=== PATIENT | female | born 1940 | race Caucasian/White ===

== ENCOUNTER 2019-02-20 07:16 | Day surgery (SDC) | payer MEDICARE, OTHER, SELFPAY ==
--- NOTE | 2019-02-20 | PATH_ITS ---
[facility] Accession Number: [id number] . 01 Material submitted: . PART A: cecum - CECAL POLYP PART B: colon - ASCENDING COLON POLYP PART C: sigmoid colon - SIGMOID POLYP . 02 Diagnosis: A. Cecum, Polyp, Biopsy: Sessile serrated adenoma. . B. Ascending Colon, Polyp, Biopsy: Colonic mucosa with mildly thickened muscularis mucosae, favor benign leiomyoma. Negative for atypia, epithelial dysplasia and malignancy. . C. Sigmoid Colon, Polyp, Biopsy: Hyperplastic polyp. MRV/02/22/2019 . 02 Electronically signed: . Roberta Ag MD, Pathologist NPI- [id number] . 01 Gross description: . Part A: CECAL POLYP: Received in formalin are 2 fragment(s) of humphries, soft tissue measuring 0.1 x 0.1 x 0.1 cm to 0.7 x 0.6 x 0.2 cm which is entirely submitted and submitted entirely in 1 cassette(s) Part B: ASCENDING COLON POLYP: Received in formalin is 1 fragment(s) of humphries, soft tissue measuring 0.3 x 0.2 x 0.1 cm which is entirely submitted and submitted entirely in 1 cassette(s) Part C: SIGMOID POLYP: Received in formalin is 1 fragment(s) of humphries, soft tissue measuring 0.3 x 0.3 x 0.3 cm which is entirely submitted and submitted entirely in 1 cassette(s) /DMC /[facility] . 02 Pathologist provided ICD-10: D12.0 . 02 CPT . 342901, [id number], [id number] Performed at: [address], [place], [place] [id number] MD Navarro Bahena MD Phone: [phone] Performed at: 02 [facility] [address] [place] [id number] MD Roberta Ag MD Phone: [phone]
--- NOTE | 2019-02-20 07:44 | PM.HP.1 ---
History of Present Illness Date Patient Seen: 02/20/19 Chief complaint: [id number] Narrative: 79-year-old female here for colon polyp surveillance. No active GI symptoms at present Patient History Medical History (Updated 02/20/19 @ 08:12 by Angela Kiser RN) Arthritis (Acute) Constipation (Acute) Deaf (Acute) FH: total abdominal hysterectomy and bilateral salpingo-oophorectomy (Acute) Gastric reflux (Acute) Surgical History (Updated 11/14/17 @ 05:19 by Conversion Provider) History of hip replacement History of lumpectomy Family History (Updated 03/01/17 @ 00:00 by Conversion Provider) Grandmother Heart disease Grandfather Breast cancer Grandmother Heart disease Sister Age: 74 Breast cancer Hypertension High cholesterol Social History household members: spouse Family & Social History Family History (Updated 03/01/17 @ 00:00 by Conversion Provider) Grandmother Heart disease Grandfather Breast cancer Grandmother Heart disease Sister Age: 74 Breast cancer Hypertension High cholesterol Meds Home Medications Medication Instructions Recorded Confirmed Type latanoprost [Xalatan] 1 drp OPH HS #0 12/20/11 02/20/19 History OMEGA-3 FATTY ACIDS (FISH OIL) 1,500 mg PO Q DAY #0 04/26/16 02/20/19 History multivitamin [Multiple Vitamins] 1 tab PO QDAY #0 07/29/16 02/20/19 History cholecalciferol (vitamin D3) 1,000 unit PO DAILY 02/20/19 02/20/19 History [Vitamin D3] fluticasone propionate 1 spray INTRANASAL BID 02/20/19 02/20/19 History polyethylene glycol 3350 [Miralax] 17 g PO DAILY 02/20/19 02/20/19 History Allergies Allergy/AdvReac Type Severity Reaction Status Date / Time levofloxacin [LEVOFLOXACIN] AdvReac Severe ACHILLES Verified 02/20/19 07:52 TENDONITIS ciprofloxacin [From Cipro] AdvReac Intermediate Achilles Verified 02/20/19 07:42 tendonitis doxycycline AdvReac Intermediate Verified 02/20/19 07:42 sulfadiazine [SULFADIAZINE] AdvReac Intermediate GI UPSET Verified 02/20/19 07:52 Exam Narrative Exam Narrative: General: Patient is well developed, not in apparent distress Cardiovascular: Regular rate and rhythm, no murmurs, rubs, or gallops; no evidence of edema; no palpable abdominal aortic aneurysm Gastrointestinal: Normoactive bowel sounds, soft, nontender, nondistended, no rebound tenderness, no hepatosplenomegaly, no evidence of hernia Assessment & Plan Assessment & Plan narrative: 79-year-old female who is here for colon polyp surveillance. No evidence of alarm symptoms or GI bleeding. Regarding the procedure(s), the risks and potential complications, benefits, and alternatives (including not doing the procedure) were discussed with the patient. The risks include but are not limited to bleeding, splenic injury, infection, perforation which may require surgical intervention, missed lesions, and adverse reactions to sedative medicines. After a question and answer period, the patient agreed to proceed with the procedure(s) and gives informed consent.
[2019-02-20] MEDS: SODIUM CHLORIDE 0.9% 1,000 ML 70 ML IV (07:51)
[2019-02-20 07:52] VITALS: BP 133/90; PULSE 85; RESP 15; TEMP 36.3; O2SAT 96; BMI 21.0
--- NOTE | 2019-02-20 08:21 | PM.OP.ENDO ---
Operative Date/Time/Diagnoses Date of procedure: 02/20/19 Procedure Notes Procedure in detail: Surgeon: Colton Yoon MD Procedure: Colonoscopy with polypectomy Preoperative diagnosis: Colon polyp surveillance Postoperative diagnosis: Colon polyps x3 status post polypectomy; sigmoid diverticulosis Medications: Conscious sedation using 5 mg IV of Midazolam and 100 mcg IV of Fentanyl Preanesthesia Assessment An H and P was performed/updated and the Px?s ASA class is 2. The procedure was discussed in detail with the patient. The potential risks and complications including infection, bleeding, missed lesions, perforation, need for surgery in case of perforation, prolonged hospital stay, and were explained. A brief question and answer period was allotted and once all questions were answered, informed consent was obtained. The patient was brought back to the procedure room and placed on standard monitoring. The patient?s vital signs were monitored continuously throughout the entire procedure. Prior to starting, a timeout was performed to confirm the patient?s identity, allergies, medications, and procedure. Procedure in detail The patient was placed in left lateral decubitus position and once adequate sedation was obtained a CHONG was performed. The digital rectal examination did not reveal any palpable lesions. The tip of the colonoscope was placed in the anal canal and advanced without difficulty all the way to the cecum which was identified by the appendiceal orifice and the ileocecal valve. Careful examination of all carranza of the colon was performed with irrigation of any residual stool. In the cecum, there was note of a 7 mm sessile polyp which was removed by means of cold snare. Resection and retrieval was complete with minimal bleeding. In the ascending colon, there was note of a 3 mm sessile polyp which was removed by means of cold Jumbo forceps. Resection and retrieval was complete with minimal bleeding. In the sigmoid colon, there was note of a 3 mm sessile polyp which was removed by means of cold Jumbo forceps. Resection and retrieval was complete with minimal bleeding. There was note of few small diverticula in the sigmoid colon Retroflexion was performed in the rectum which revealed no significant abnormality. The patient tolerated the procedure well and will be brought back to the recovery area to be discharged once criteria are met. The prep was judged to be good/excellent and adequate to identify polyps less than 5 mm. The withdrawal time was 9 minutes. The total physician intraservice time was 23 minutes. Complications There were no complications and estimated blood loss was minimal. Recommendations: Check 12 lead EKG given rhythm changed during colonoscopy Resume previous diet Continue outPx medications Follow up pathology results Repeat colonoscopy can be considered in 3 or 5 years depending on pathology results. This would be dependent on the patient's health issues at that time. Try using Citrucel powder 2 tbsp twice daily for the next few weeks to see whether this would improve your bowel habits; you can then titrate down accordingly to maintain a daily bowel movement An emergency contact number was given to the patient for any complications related to the procedure
[2019-02-20] MEDS: fentaNYL 250 MCG/5 ML INJ IV (08:48)
[2019-02-20] MEDS: MIDAZOLAM 5 MG/5 ML VIAL IV (08:50)
--- NOTE | 2019-02-20 08:55 | PM.EVENT ---
Date Patient Seen: 02/20/19 Time Patient Seen: 08:56 During the colonoscopy there was note of a rhythm change on her leads. The patient denied any chest pain or shortness of breath. She will be taken to recovery for 12 lead EKG and further evaluation.
[2019-02-20 09:00] VITALS: BP 109/72; PULSE 69; RESP 14; TEMP 36.7; O2SAT 96
[2019-02-20 09:05] VITALS: BP 104/67; PULSE 65; RESP 13; O2SAT 96
[2019-02-20 09:10] VITALS: BP 106/69; PULSE 73; RESP 16; O2SAT 97
--- NOTE | 2019-02-20 09:21 | SUR.PHASEI ---
PER ENDO RN, PT HAD CHANGE IN RHYTHM DURING PROCEDURE, PT DENIES ANY PAIN OR SOB, EKG OBTAINED. DR DAMICO IN TO SEE PT AND EKG, ORDERED TROPONIN , DR DAMICO SPOKE WITH HOSPITALIST, WILL SEND PT TO ER PER DR DAMICO. REPORT GIVEN TO TAPPER OPERATOR.
[2019-02-20 09:25] VITALS: BP 124/73; PULSE 70; RESP 15; TEMP 36.2; O2SAT 97
--- NOTE | 2019-02-20 09:46 | ED.CHESTPAIN ---
HPI - Chest Pain General Source: patient, family () and other (PACU nurse) Mode of arrival: other (gurney from OR) Limitations: no limitations History of Present Illness HPI narrative: This is a 79-year-old female comes to the emergency department for ST changes on her telemetry lead during a colonoscopy. Per PACU patient did not have any changes initially and when they rolled her on her side it appeared she had ST elevation on her telemetry lead and when they rolled her back over onto her back it resolved. They did once again and it showed up again and then resolved. Patient states that she has seen a clinical cytogeneticist about 3 years ago during a physical exam her EKG looked funny she was told to go to the clinical cytogeneticist who evaluated her and she states she was cleared. She takes medications for lock and seasonal allergies. 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 Today she was getting a screening colonoscopy that was after she had her 1st regular colonoscopy in 2012. She denies tobacco, 1-2 alcoholic drinks daily, no illicit. Patient denies any symptoms currently, she states she feels very rested and relaxed, she denies any headache, no chest pain, no chest pressure, no shortness of breath, no nausea or vomiting no other symptoms no other GI or urinary symptoms currently. Related Data Home Medications Medication Instructions Recorded Confirmed latanoprost [Xalatan] 1 drp OPH BEDTIME #0 12/20/11 02/20/19 multivitamin [Multiple Vitamins] 1 tab PO DAILY #0 07/29/16 02/20/19 Astragalus 500 mg PO BID 02/20/19 02/20/19 Quercetin 3 tab PO BID 02/20/19 02/20/19 cholecalciferol (vitamin D3) 1,000 unit PO DAILY 02/20/19 02/20/19 [Vitamin D3] evening primrose oil 1 dose PO DAILY 02/20/19 02/20/19 fluticasone propionate 1 spray INTRANASAL BID 02/20/19 02/20/19 polyethylene glycol 3350 [Miralax] 17 g PO DAILY 02/20/19 02/20/19 prednisone 20 mg PO DAILYX7 02/20/19 02/20/19 turmeric root extract 500 mg PO BID 02/20/19 02/20/19 Allergies Allergy/AdvReac Type Severity Reaction Status Date / Time levofloxacin [LEVOFLOXACIN] AdvReac Severe ACHILLES Verified 02/20/19 10:01 TENDONITIS ciprofloxacin [From Cipro] AdvReac Intermediate Achilles Verified 02/20/19 10:01 tendonitis doxycycline AdvReac Intermediate Verified 02/20/19 10:01 sulfadiazine [SULFADIAZINE] AdvReac Intermediate GI UPSET Verified 02/20/19 10:01 Review of Systems Review of Systems ROS Unobtainable: All systems reviewed & are unremarkable except as noted in HPI and below PFSH Medical History Arthritis (Acute) Constipation (Acute) Deaf (Acute) FH: total abdominal hysterectomy and bilateral salpingo-oophorectomy (Acute) Gastric reflux (Acute) Surgical History History of hip replacement History of lumpectomy Family History (Updated 03/01/17 @ 00:00 by Conversion Provider) Grandmother Heart disease Grandfather Breast cancer Grandmother Heart disease Sister Age: 74 Breast cancer Hypertension High cholesterol Social History household members: spouse Family History Grandmother Heart disease Grandfather Breast cancer Grandmother Heart disease Sister Age: 74 Breast cancer Hypertension High cholesterol Social History household members: spouse Smoking Status: Never smoker Exam Narrative Exam Narrative: GENERAL: Alert and oriented x three, patient does occasionally repeat the same information but otherwise is quite alert. She is in no acute distress HEENT: Head normocephalic, atraumatic, EOMI, pupils reactive, face symmetric, moist mucous membranes NECK: Supple, full range of motion CARDIOVASCULAR: Regular rate and rhythm without murmurs, rubs or gallops. RESPIRATORY: Breath sounds equal bilaterally, no wheezes rales or rhonchi. ABDOMEN: Soft, nontender. Nondistended. Normoactive bowel sounds all 4 quadrants. No guarding or rebound, rigidity, no mass : No CVA tenderness EXTREMITIES: Normal range of motion, no clubbing or edema. Neurovascularly intact NEUROLOGICAL: Cranial nerves II through XII grossly intact. Moving all extremities SKIN: Warm, dry, no petechiae, no rashes or lesions. Initial Vital Signs Initial Vital Signs: Vital Signs Temperature 97.3 F L 02/20/19 07:52 Pulse Rate 85 02/20/19 07:52 Respiratory Rate 15 02/20/19 07:52 Blood Pressure 133/90 02/20/19 07:52 Pulse Oximetry 96 02/20/19 07:52 Course Orders Ordered: ED Orders 02/20/19 08:55 EKG-12 Lead Stat 02/20/19 09:20 Comprehensive Metabolic Panel Stat Lipase Stat Trop I [Troponin I] Stat Troponin & CK Cardiac Panel Stat 02/20/19 09:45 XR chest 1V Stat 02/20/19 09:50 B Type Natriuretic Peptide Stat Complete Blood Count AUTO DIFF Stat Partial Thromboplastin Time Stat Prothrombin Time INR Stat Discontinued Medications Fentanyl (Sublimaze) 250 mcg IV NOW ONE Stop: 02/20/19 08:49 Last Admin: 02/20/19 08:48 Dose: 100 mcg Sodium Chloride (Normal Saline 0.9%) 1,000 mls @ 70 mls/hr IV CONT UMER Last Admin: 02/20/19 07:51 Dose: 70 mls/hr Sodium Chloride (Normal Saline 0.9%) 1,000 mls @ 150 mls/hr IV CONT UMER Midazolam HCl (Versed) 5 mg IV NOW ONE Stop: 02/20/19 08:49 Last Admin: 02/20/19 08:50 Dose: 5 mg Vital Signs - 8 hr 02/20/19 07:52 02/20/19 09:00 02/20/19 09:05 Temperature 97.3 F L 98.1 F Pulse Rate 85 69 65 Respiratory Rate 15 14 13 Blood Pressure 133/90 109/72 104/67 Pulse Oximetry 96 96 96 02/20/19 09:10 02/20/19 09:25 Temperature 97.2 F L Pulse Rate 73 70 Respiratory Rate 16 15 Blood Pressure 106/69 124/73 Pulse Oximetry 97 97 MDM - Chest Pain Lab Data Attestation: I reviewed the patient's lab results. Result diagrams: 02/20/19 09:50 02/20/19 09:20 Lab Results 02/20/19 02/20/19 02/20/19 Range/Units 09:20 09:20 09:50 WBC 5.0 (4.5-11.0) X10^3/uL RBC 4.49 (4.0-5.2) X10^6/uL Hgb 13.7 (12.0-16.0) g/dL Hct 40.9 (36-46) % MCV 91.2 (80-100) fL MCH 30.5 (26-34) PG MCHC 33.5 (30-36) % RDW 14.0 (11.6-14.8) % Plt Count 259 (150-400) X10^3/uL Neut % (Auto) 47.7 L (50-75) % Lymph % (Auto) 39.3 (25-40) % [place] % (Auto) 8.9 (3-14) % Eos % (Auto) 2.9 (2-4) % Baso % (Auto) 1.2 (0-2) % Neut # (Auto) 2400 (7538-1458) /uL Lymph # (Auto) 1900 ([address]75-5659) /uL [place] # (Auto) 400 (0-900) /uL Eos # (Auto) 100 (0-450) /uL Baso # (Auto) 100 (0-100) /uL PT (10.1-12.7) SECONDS INR (0.9-1.3) APTT (26.4-36.2) SECONDS Sodium 140 (137-145) mmol/L Potassium 3.9 (3.4-5.1) mmol/L Chloride 108 H (98-107) mmol/L Carbon Dioxide 25 (22-32) mmol/L BUN 10 (7-17) mg/dL Creatinine 0.50 L (0.52-1.04) mg/dL Estimated GFR > 60.0 (>60) mL/min BUN/Creatinine Ratio 20.0 (6-22) Glucose 98 (80-110) mg/dL Calcium 8.8 (8.4-10.2) mg/dL Total Bilirubin 0.7 (0.2-1.3) mg/dL AST 32 (14-36) IU/L ALT 22 (9-52) IU/L Alkaline Phosphatase 38 (38-126) U/L Total Creatine Kinase 118 (30-135) U/L CK-MB (CK-2) 3.55 H (<2.37) ng/mL CK-MB (CK-2) Rel Index 3.0 (1.5-5.0) % Troponin I < 0.012 < 0.012 (0.01-0.034) ng/mL B-Natriuretic Peptide < 100 (<100) Total Protein 5.9 L (6.3-8.2) g/dL Albumin 3.7 (3.5-5.0) g/dL Globulin 2.2 (1.7-4.1) g/dL Albumin/Globulin Ratio 1.7 (1.0-2.8) Lipase 91 (23-300) U/L 02/20/19 Range/Units 09:50 WBC (4.5-11.0) X10^3/uL RBC (4.0-5.2) X10^6/uL Hgb (12.0-16.0) g/dL Hct (36-46) % MCV (80-100) fL MCH (26-34) PG MCHC (30-36) % RDW (11.6-14.8) % Plt Count (150-400) X10^3/uL Neut % (Auto) (50-75) % Lymph % (Auto) (25-40) % [place] % (Auto) (3-14) % Eos % (Auto) (2-4) % Baso % (Auto) (0-2) % Neut # (Auto) (8920-1792) /uL Lymph # (Auto) (3168-5311) /uL [place] # (Auto) (0-900) /uL Eos # (Auto) (0-450) /uL Baso # (Auto) (0-100) /uL PT 12.9 H (10.1-12.7) SECONDS INR 1.1 (0.9-1.3) APTT 28 (26.4-36.2) SECONDS Sodium (137-145) mmol/L Potassium (3.4-5.1) mmol/L Chloride (98-107) mmol/L Carbon Dioxide (22-32) mmol/L BUN (7-17) mg/dL Creatinine (0.52-1.04) mg/dL Estimated GFR (>60) mL/min BUN/Creatinine Ratio (6-22) Glucose (80-110) mg/dL Calcium (8.4-10.2) mg/dL Total Bilirubin (0.2-1.3) mg/dL AST (14-36) IU/L ALT (9-52) IU/L Alkaline Phosphatase (38-126) U/L Total Creatine Kinase (30-135) U/L CK-MB (CK-2) (<2.37) ng/mL CK-MB (CK-2) Rel Index (1.5-5.0) % Troponin I (0.01-0.034) ng/mL B-Natriuretic Peptide (<100) Total Protein (6.3-8.2) g/dL Albumin (3.5-5.0) g/dL Globulin (1.7-4.1) g/dL Albumin/Globulin Ratio (1.0-2.8) Lipase (23-300) U/L Imaging Data Chest x-ray: Radiologist's impression: Darling Aguilar 79 [address] [place] [address] XRay Report Signed Patient: Darling Aguilar LMR#: [id number] : 1940Acct:[id number] Age/Sex: 79 / FDate of Service: 02/20/19 Loc: ENDO Accession Number: [id number] Procedure: XR chest 1V Ordering Provider: Kae Tomas D.O. PROCEDURE: XR CHEST 1V INDICATIONS: st changes on tele during coloscopy TECHNIQUE: One view of the chest was acquired. COMPARISON: None. FINDINGS: Surgical changes and devices: None. Lungs and pleura: Lungs are clear. No pleural effusions or pneumothorax. Mediastinum: Mediastinal contours appear normal. Heart size is normal. Bones and chest wall: No suspicious bony lesions. Overlying soft tissues appear unremarkable. IMPRESSION: Normal for age, source of current possible coronary insufficiency symptoms is not seen. Dictated by: Wilian Malhotra M.D. on 02/20/2019 at 10:10 Approved by: Wilian Malhotra M.D. on 02/20/2019 at 10:11 ECG Data Prior ECG tracings: available for review (from earlier today) Interpretation: Patient has EKG from 08 with a rate of 73 P are 152 QRS of 121 QTC of 462. Patient has right axis deviation, patient has Q-waves in V1 V2 with nonspecific changes. Patient does not have a prior for comparison. EKG 2. From 0940 in the emergency department shows sinus rhythm, rate of 65 P are 149 QRS of 123 QTC of 458. Nonspecific change patient continues to have Q-wave in V1 through V3. Patient did appear to possibly have some ST depression in the 0.5 mm range or inversion that does appear resolved on 2nd EKG. [facility] Narrative Medical decision making narrative: Patient's labs show no changes in her CBC has a neutrophils are 47.7% which is slightly low, coags are normal, 108 creatinine is normal with normal electrolytes otherwise. CK-MB is 2.55, troponin is negative. BNP is 100. I spoke with Dr. Yoon who was performing the colonoscopy and sedation. He states that patient did have elevation on her telemetry strip. I states the procedure was about 10 or 15 minutes he states that it seem like she had the elevation throughout the procedure. He was unsure if it was possibly positional versus a cardiac event. Procedure was completed, patient was rolled back onto their back and at the end of the procedure had a normal tele strip. An in the PACU EKG after the procedure did not show obvious changes. Patient had EKG that we did obtain from her clinical cytogeneticist's office in comparison to today's 2nd EKG does appear similar. Spoke with patient's clinical cytogeneticist, Dr. Grijalva. She evaluated their office about 5 years ago. He has not seen her since. We discussed patient's findings we discussed that it is unclear if this could be artifact from a leads versus potentially a cardiac event although STEMI is less likely as patient is asymptomatic after. He did recommend follow up outpatient, echo. We discussed the patient should be observed. He felt that it was not significant if repeat troponin was negative. Discussed with patient and her family. Discharge Plan Discharge Plan Discharge Problem: Nonspecific ST-T wave electrocardiographic changes Patient Disposition: Home Discharge comment: Follow up with Dr. Grijalva your clinical cytogeneticist in the next 2-3 days for recheck. Call for an appointment. Dr. Grijalva would like to see you and get you set up for ECHO. Continue home medications as prescribed. Return to the ER for any new changes, passing out, lightheadedness, new chest pain, shortness of breath, persistent vomiting, sweatiness, abdominal pain, swelling in your extremities or other new or concerning symptoms. Discharge Med Rec/Prescriptions Prescriptions: Continued latanoprost [Xalatan] 0.005 % drops 1 drp OPHTH BEDTIME Qty: 0 RF: 0 multivitamin [Multiple Vitamins] 1 EACH tablet 1 tab PO DAILY Qty: 0 RF: 0 fluticasone propionate 50 mcg/actuation Kermit,Suspension 1 spray INTRANASAL BID RF: 0 cholecalciferol (vitamin D3) [Vitamin D3] 1,000 unit Capsule 1,000 unit PO DAILY RF: 0 polyethylene glycol 3350 [Miralax] 17 gram/dose Powder 17 g PO DAILY RF: 0 No Action prednisone 20 mg tablet 20 mg PO DAILYX7 RF: 0 Astragalus 500 mg 500 mg PO BID RF: 0 turmeric root extract 500 mg Capsule 500 mg PO BID RF: 0 Quercetin 1 Gram 3 tab PO BID RF: 0 evening primrose oil 1,000 mcg 1 dose PO DAILY RF: 0 Follow up/Referrals: Maury Arenas MD [Primary Care Provider] - Roxanne Grijalva MD [Physician] - Discharge Orders: Discharge (Order); Ordered 02/20/19 Ordered By: Colton Yoon Provider Discharge Instructions Diet: Diet as Tolerated Visit Report/Discharge Packet Stand Alone Forms: Colonoscopy Result: Med Grp Discharge Data Primary Care Provider: Maury Arenas Attending Provider: Colton Yoon Discharges patient from system. Discharge Date/Time: 02/20/19 09:47
[2019-02-20 09:53] LABS: Troponin I < 0.012 ng/mL (0.01-0.034)
[2019-02-20 10:03] LABS: INR 1.1 (0.9-1.3); Prothrombin Time 12.9 SECONDS (10.1-12.7)
[2019-02-20 10:06] LABS: PTT Partial Thromboplastin Tim 28 SECONDS (26.4-36.2)
[2019-02-20 10:07] LABS: Add Manual Diff / Slide Review NO; Basophils Absolute Auto 100 /uL (0-100); Basophils Percent Auto 1.2 % (0-2); Eosinophils Absolute Auto 100 /uL (0-450); Eosinophils Percent Auto 2.9 % (2-4); Hematocrit 40.9 % (36-46); Hemoglobin 13.7 g/dL (12.0-16.0); Lymphocytes Absolute Auto 1900 /uL (1100-4500); Lymphocytes Percent Auto 39.3 % (25-40); Mean Corpuscular HGB Conc 33.5 % (30-36); Mean Corpuscular Hemoglobin 30.5 PG (26-34); Mean Corpuscular Volume 91.2 fL (80-100); Monocytes Absolute Auto 400 /uL (0-900); Monocytes Percent Auto 8.9 % (3-14); Neutrophils Absolute Auto 2400 /uL (1500-7000); Neutrophils Percent Auto 47.7 % (50-75); Platelet Count 259 X10^3/uL (150-400); Red Blood Cell Count 4.49 X10^6/uL (4.0-5.2)
[2019-02-20 10:28] LABS: B Type Natriuretic Peptide < 100 (<100)
[2019-02-20 10:37] LABS: Alanine Aminotransferase 22 IU/L (9-52); Albumin 3.7 g/dL (3.5-5.0); Albumin Globulin Ratio 1.7 (1.0-2.8); Alkaline Phosphatase 38 U/L (38-126); Aspartate Aminotransferase 32 IU/L (14-36); Bilirubin Total 0.7 mg/dL (0.2-1.3); Blood Urea Nitrogen 10 mg/dL (7-17); Calcium 8.8 mg/dL (8.4-10.2); Carbon Dioxide 25 mmol/L (22-32); Chloride 108 mmol/L (98-107); Creatine Kinase 118 U/L (30-135); Estimated Glomerular Filt Rate > 60.0 mL/min (>60); Globulin 2.2 g/dL (1.7-4.1); Glucose 98 mg/dL (80-110); HEMOLYSIS < 15 (0-50); Lipase 91 U/L (23-300); Potassium 3.9 mmol/L (3.4-5.1); Sodium 140 mmol/L (137-145); Total Protein 5.9 g/dL (6.3-8.2)
[2019-02-20 10:49] LABS: Troponin I < 0.012 ng/mL (0.01-0.034)
[2019-02-20 10:52] LABS: Creatine Kinase MB 3.55 ng/mL (<2.37)
== END 2019-02-20 09:47 | disposition home or self-care (01) ==
PROVIDERS: Emergency Medicine; PCP Family Medicine; Visit Provider Internal Medicine Gastroenterology
PROC: 0DJD8ZZ Inspection of Lower Intestinal Tract, Via Natural or Artificial Opening Endoscopic (ICD-10-PCS; CPT 45378; principal; 2019-02-20 08:30)
DX: Z86.010 Personal history of colon polyps (principal); D12.0 Benign neoplasm of cecum; D12.2 Benign neoplasm of ascending colon; K63.5 Polyp of colon; K57.30 Diverticulosis of large intestine without perforation or abscess without bleeding; R94.31 Abnormal electrocardiogram [ECG] [EKG]; R07.9 Chest pain, unspecified; K59.00 Constipation, unspecified; H91.90 Unspecified hearing loss, unspecified ear
CPT/HCPCS: 45385; 45380; 36415; 36591; 71045; 80053; 82550; 82553; 83690; 83880; 84484; 85025; 85610; 85730; 88305; 93005; 93010; 96360; 96361; 99284; J2250; J3010

== ENCOUNTER 2019-02-20 09:46 | Emergency (ER) | payer MEDICARE, OTHER, SELFPAY ==
[2019-02-20] VITALS (8 sets, daily range): BP systolic 114–126; BP diastolic 63–89; PULSE 59–70; RESP 12–20; TEMP 36.6; O2SAT 97–100
[2019-02-20] MEDS: SODIUM CHLORIDE 0.9% 1,000 ML 150 ML IV (10:15)
[2019-02-20] MEDS: ASPIRIN 81 MG TAB 324 MG PO (10:34)
[2019-02-20 12:00] LABS: Creatine Kinase 102 U/L (30-135)
[2019-02-20 12:11] LABS: Troponin I < 0.012 ng/mL (0.01-0.034)
[2019-02-20 12:26] LABS: Creatine Kinase MB 3.03 ng/mL (<2.37)
--- NOTE | 2019-02-20 12:44 | ED.CHESTPAIN ---
HPI - Chest Pain General Chief Complaint: Chest Pain Stated Complaint: POSSIBLE STEMI Time Seen by Provider: 02/20/19 10:01 History of Present Illness HPI narrative: [address] [address] Emergency Report Patient: Darling Aguilar LMR#: [id number] : 1940Acct:[id number] Age/Sex: 79 / F Date of Service: 02/20/19 ER Physician: HPI - Chest Pain General Source: patient, family () and other (PACU nurse) Mode of arrival: other (gurney from OR) Limitations: no limitations History of Present Illness HPI narrative: This is a 79-year-old female comes to the emergency department for ST changes on her telemetry lead during a colonoscopy. Per PACU patient did not have any changes initially and when they rolled her on her side it appeared she had ST elevation on her telemetry lead and when they rolled her back over onto her back it resolved. They did once again and it showed up again and then resolved. Patient states that she has seen a drier operator head about 3 years ago during a physical exam her EKG looked funny she was told to go to the drier operator head who evaluated her and she states she was cleared. She takes medications for lock and seasonal allergies. 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 Today she was getting a screening colonoscopy that was after she had her 1st regular colonoscopy in 2013. She denies tobacco, 1-2 alcoholic drinks daily, no illicit. Patient denies any symptoms currently, she states she feels very rested and relaxed, she denies any headache, no chest pain, no chest pressure, no shortness of breath, no nausea or vomiting no other symptoms no other GI or urinary symptoms currently. Related Data Home Medications Medication Instructions Recorded Confirmed latanoprost [Xalatan] 1 drp OPHTH BEDTIME #0 12/20/11 02/20/19 multivitamin [Multiple Vitamins] 1 tab PO DAILY #0 07/29/16 02/20/19 Astragalus 500 mg PO BID 02/20/19 02/20/19 Quercetin 3 tab PO BID 02/20/19 02/20/19 cholecalciferol (vitamin D3) 1,000 unit PO DAILY 02/20/19 02/20/19 [Vitamin D3] evening primrose oil 1 dose PO DAILY 02/20/19 02/20/19 fluticasone propionate 1 spray INTRANASAL BID 02/20/19 02/20/19 polyethylene glycol 3350 [Miralax] 17 g PO DAILY 02/20/19 02/20/19 prednisone 20 mg PO DAILYX7 02/20/19 02/20/19 turmeric root extract 500 mg PO BID 02/20/19 02/20/19 Allergies Allergy/AdvReac Type Severity Reaction Status Date / Time levofloxacin [LEVOFLOXACIN] AdvReac Severe ACHILLES Verified 02/20/19 10:01 TENDONITIS ciprofloxacin [From Cipro] AdvReac Intermediate Achilles Verified 02/20/19 10:01 tendonitis doxycycline AdvReac Intermediate Verified 02/20/19 10:01 sulfadiazine [SULFADIAZINE] AdvReac Intermediate GI UPSET Verified 02/20/19 10:01 Review of Systems Review of Systems ROS Unobtainable: All systems reviewed & are unremarkable except as noted in HPI and below PFSH Medical History Arthritis (Acute) Constipation (Acute) Deaf (Acute) FH: total abdominal hysterectomy and bilateral salpingo-oophorectomy (Acute) Gastric reflux (Acute) Surgical History History of hip replacement History of lumpectomy Family History (Updated 03/01/17 @ 00:00 by Conversion Provider) Grandmother Heart disease Grandfather Breast cancer Grandmother Heart disease Sister Age: 74 Breast cancer Hypertension High cholesterol Social History household members: spouse Family History Grandmother Heart disease Grandfather Breast cancer Grandmother Heart disease Sister Age: 74 Breast cancer Hypertension High cholesterol Social History household members: spouse Smoking Status: Never smoker Exam Narrative Exam Narrative: GENERAL: Alert and oriented x three, patient does occasionally repeat the same information but otherwise is quite alert. She is in no acute distress HEENT: Head normocephalic, atraumatic, EOMI, pupils reactive, face symmetric, moist mucous membranes NECK: Supple, full range of motion CARDIOVASCULAR: Regular rate and rhythm without murmurs, rubs or gallops. RESPIRATORY: Breath sounds equal bilaterally, no wheezes rales or rhonchi. ABDOMEN: Soft, nontender. Nondistended. Normoactive bowel sounds all 4 quadrants. No guarding or rebound, rigidity, no mass : No CVA tenderness EXTREMITIES: Normal range of motion, no clubbing or edema. Neurovascularly intact NEUROLOGICAL: Cranial nerves II through XII grossly intact. Moving all extremities SKIN: Warm, dry, no petechiae, no rashes or lesions. Initial Vital Signs Initial Vital Signs: Vital Signs Temperature 97.3 F L 02/20/19 07:52 Pulse Rate 85 02/20/19 07:52 Respiratory Rate 15 02/20/19 07:52 Blood Pressure 133/90 02/20/19 07:52 Pulse Oximetry 96 02/20/19 07:52 Course Orders Ordered: ED Orders 02/20/19 08:55 EKG-12 Lead Stat 02/20/19 09:20 Comprehensive Metabolic Panel Stat Lipase Stat Trop I [Troponin I] Stat Troponin & CK Cardiac Panel Stat 02/20/19 09:45 XR chest 1V Stat 02/20/19 09:50 B Type Natriuretic Peptide Stat Complete Blood Count AUTO DIFF Stat Partial Thromboplastin Time Stat Prothrombin Time INR Stat Discontinued Medications Fentanyl (Sublimaze) 250 mcg IV NOW ONE Stop: 02/20/19 08:49 Last Admin: 02/20/19 08:48 Dose: 100 mcg Sodium Chloride (Normal Saline 0.9%) 1,000 mls @ 70 mls/hr IV CONT UMER Last Admin: 02/20/19 07:51 Dose: 70 mls/hr Sodium Chloride (Normal Saline 0.9%) 1,000 mls @ 150 mls/hr IV CONT UMER Midazolam HCl (Versed) 5 mg IV NOW ONE Stop: 02/20/19 08:49 Last Admin: 02/20/19 08:50 Dose: 5 mg Vital Signs - 8 hr 02/20/19 07:52 02/20/19 09:00 02/20/19 09:05 Temperature 97.3 F L 98.1 F Pulse Rate 85 69 65 Respiratory Rate 15 14 13 Blood Pressure 133/90 109/72 104/67 Pulse Oximetry 96 96 96 02/20/19 09:10 02/20/19 09:25 Temperature 97.2 F L Pulse Rate 73 70 Respiratory Rate 16 15 Blood Pressure 106/69 124/73 Pulse Oximetry 97 97 MDM - Chest Pain Lab Data Attestation: I reviewed the patient's lab results. Result diagrams: 02/20/19 09:50 document embedded image 02/20/19 09:20 document embedded image Lab Results 02/20/19 02/20/19 02/20/19 Range/Units 09:20 09:20 09:50 WBC 5.0 (4.5-11.0) X10^3/uL RBC 4.49 (4.0-5.2) X10^6/uL Hgb 13.7 (12.0-16.0) g/dL Hct 40.9 (36-46) % MCV 91.2 (80-100) fL MCH 30.5 (26-34) PG MCHC 33.5 (30-36) % RDW 14.0 (11.6-14.8) % Plt Count 259 (150-400) X10^3/uL Neut % (Auto) 47.7 L (50-75) % Lymph % (Auto) 39.3 (25-40) % Carson % (Auto) 8.9 (3-14) % Eos % (Auto) 2.9 (2-4) % Baso % (Auto) 1.2 (0-2) % Neut # (Auto) 2400 (9864-0214) /uL Lymph # (Auto) 1900 (3089-6208) /uL Carson # (Auto) 400 (0-900) /uL Eos # (Auto) 100 (0-450) /uL Baso # (Auto) 100 (0-100) /uL PT (10.1-12.7) SECONDS INR (0.9-1.3) APTT (26.4-36.2) SECONDS Sodium 140 (137-145) mmol/L Potassium 3.9 (3.4-5.1) mmol/L Chloride 108 H (98-107) mmol/L Carbon Dioxide 25 (22-32) mmol/L BUN 10 (7-17) mg/dL Creatinine 0.50 L (0.52-1.04) mg/dL Estimated GFR > 60.0 (>60) mL/min BUN/Creatinine Ratio 20.0 (6-22) Glucose 98 (80-110) mg/dL Calcium 8.8 (8.4-10.2) mg/dL Total Bilirubin 0.7 (0.2-1.3) mg/dL AST 32 (14-36) IU/L ALT 22 (9-52) IU/L Alkaline Phosphatase 38 (38-126) U/L Total Creatine Kinase 118 (30-135) U/L CK-MB (CK-2) 3.55 H (<2.37) ng/mL CK-MB (CK-2) Rel Index 3.0 (1.5-5.0) % Troponin I < 0.012 < 0.012 (0.01-0.034) ng/mL B-Natriuretic Peptide < 100 (<100) Total Protein 5.9 L (6.3-8.2) g/dL Albumin 3.7 (3.5-5.0) g/dL Globulin 2.2 (1.7-4.1) g/dL Albumin/Globulin Ratio 1.7 (1.0-2.8) Lipase 91 (23-300) U/L 02/20/19 Range/Units 09:50 WBC (4.5-11.0) X10^3/uL RBC (4.0-5.2) X10^6/uL Hgb (12.0-16.0) g/dL Hct (36-46) % MCV (80-100) fL MCH (26-34) PG MCHC (30-36) % RDW (11.6-14.8) % Plt Count (150-400) X10^3/uL Neut % (Auto) (50-75) % Lymph % (Auto) (25-40) % Carson % (Auto) (3-14) % Eos % (Auto) (2-4) % Baso % (Auto) (0-2) % Neut # (Auto) (4654-2428) /uL Lymph # (Auto) (0720-9730) /uL Carson # (Auto) (0-900) /uL Eos # (Auto) (0-450) /uL Baso # (Auto) (0-100) /uL PT 12.9 H (10.1-12.7) SECONDS INR 1.1 (0.9-1.3) APTT 28 (26.4-36.2) SECONDS Sodium (137-145) mmol/L Potassium (3.4-5.1) mmol/L Chloride (98-107) mmol/L Carbon Dioxide (22-32) mmol/L BUN (7-17) mg/dL Creatinine (0.52-1.04) mg/dL Estimated GFR (>60) mL/min BUN/Creatinine Ratio (6-22) Glucose (80-110) mg/dL Calcium (8.4-10.2) mg/dL Total Bilirubin (0.2-1.3) mg/dL AST (14-36) IU/L ALT (9-52) IU/L Alkaline Phosphatase (38-126) U/L Total Creatine Kinase (30-135) U/L CK-MB (CK-2) (<2.37) ng/mL CK-MB (CK-2) Rel Index (1.5-5.0) % Troponin I (0.01-0.034) ng/mL B-Natriuretic Peptide (<100) Total Protein (6.3-8.2) g/dL Albumin (3.5-5.0) g/dL Globulin (1.7-4.1) g/dL Albumin/Globulin Ratio (1.0-2.8) Lipase (23-300) U/L Imaging Data Chest x-ray: Radiologist's impression: Darling Aguilar 79 F 1940 [place] [address] XRay Report Signed Patient: Darling Aguilar LMR#: [id number] : 1940Acct:[id number] Age/Sex: 79 / FDate of Service: 02/20/19 Loc: ENDO Accession Number: [id number] Procedure: XR chest 1V Ordering Provider: Kae Tomas D.O. PROCEDURE: XR CHEST 1V INDICATIONS: st changes on tele during coloscopy TECHNIQUE: One view of the chest was acquired. COMPARISON: None. FINDINGS: Surgical changes and devices: None. Lungs and pleura: Lungs are clear. No pleural effusions or pneumothorax. Mediastinum: Mediastinal contours appear normal. Heart size is normal. Bones and chest wall: No suspicious bony lesions. Overlying soft tissues appear unremarkable. IMPRESSION: Normal for age, source of current possible coronary insufficiency symptoms is not seen. Dictated by: Wilian Malhotra M.D. on 02/20/2019 at 10:10 Approved by: Wilian Malhotra M.D. on 02/20/2019 at 10:11 ECG Data Prior ECG tracings: available for review (from earlier today) Interpretation: Patient has EKG from 0857 with a rate of 73 P are 152 QRS of 121 QTC of 462. Patient has right axis deviation, patient has Q-waves in V1 V2 with nonspecific changes. Patient does not have a prior for comparison. EKG 2. From 0940 in the emergency department shows sinus rhythm, rate of 65 P are 149 QRS of 123 QTC of 458. Nonspecific change patient continues to have Q-wave in V1 through V3. Patient did appear to possibly have some ST depression in the 0.5 mm range or inversion that does appear resolved on 2nd EKG. MDM Narrative Medical decision making narrative: Patient's labs show no changes in her CBC has a neutrophils are 47.7% which is slightly low, coags are normal, 108 creatinine is normal with normal electrolytes otherwise. CK-MB is 2.55, troponin is negative. BNP is 100. I spoke with Dr. Yoon who was performing the colonoscopy and sedation. He states that patient did have elevation on her telemetry strip. I states the procedure was about 10 or 15 minutes he states that it seem like she had the elevation throughout the procedure. He was unsure if it was possibly positional versus a cardiac event. Procedure was completed, patient was rolled back onto their back and at the end of the procedure had a normal tele strip. An in the PACU EKG after the procedure did not show obvious changes. Patient had EKG that we did obtain from her drier operator head's office in comparison to today's 2nd EKG does appear similar. Spoke with patient's drier operator head, Dr. Grijalva. She evaluated their office about 5 years ago. He has not seen her since. We discussed patient's findings we discussed that it is unclear if this could be artifact from a leads versus potentially a cardiac event although STEMI is less likely as patient is asymptomatic after. He did recommend follow up outpatient, echo. We discussed the patient should be observed. He felt that it was not significant if repeat troponin was negative. Discussed with patient and her family she continues to be totally asymptomatic. She feels comfortable returning home and would like follow up outpatient. Related Data Home Medications Medication Instructions Recorded Confirmed latanoprost [Xalatan] 1 drp OPHTH BEDTIME #0 12/20/11 02/20/19 multivitamin [Multiple Vitamins] 1 tab PO DAILY #0 07/29/16 02/20/19 Astragalus 500 mg PO BID 02/20/19 02/20/19 Quercetin 3 tab PO BID 02/20/19 02/20/19 cholecalciferol (vitamin D3) 1,000 unit PO DAILY 02/20/19 02/20/19 [Vitamin D3] evening primrose oil 1 dose PO DAILY 02/20/19 02/20/19 fluticasone propionate 1 spray INTRANASAL BID 02/20/19 02/20/19 polyethylene glycol 3350 [Miralax] 17 g PO DAILY 02/20/19 02/20/19 prednisone 20 mg PO DAILYX7 02/20/19 02/20/19 turmeric root extract 500 mg PO BID 02/20/19 02/20/19 Allergies Allergy/AdvReac Type Severity Reaction Status Date / Time levofloxacin [LEVOFLOXACIN] AdvReac Severe ACHILLES Verified 02/20/19 10:01 TENDONITIS ciprofloxacin [From Cipro] AdvReac Intermediate Achilles Verified 02/20/19 10:01 tendonitis doxycycline AdvReac Intermediate Verified 02/20/19 10:01 sulfadiazine [SULFADIAZINE] AdvReac Intermediate GI UPSET Verified 02/20/19 10:01 PFSH Social History household members: spouse Smoking Status: Never smoker Exam Initial Vital Signs Initial Vital Signs: Vital Signs Temperature 97.8 F 02/20/19 09:50 Pulse Rate 69 02/20/19 09:50 Respiratory Rate 14 02/20/19 09:50 Blood Pressure 126/81 02/20/19 09:50 Pulse Oximetry 100 02/20/19 09:50 Course Orders Ordered: ED Orders 02/20/19 11:38 Troponin & CK Cardiac Panel Stat Discontinued Medications Aspirin (Aspirin Chew) 324 mg PO NOW ONE Stop: 02/20/19 10:02 Last Admin: 02/20/19 10:34 Dose: 324 mg Sodium Chloride (Normal Saline 0.9%) 1,000 mls @ 150 mls/hr IV CONT UMER Last Infusion: 02/20/19 12:57 Dose: 0 mls/hr Admin: 02/20/19 10:15 Dose: 150 mls/hr Vital Signs - 8 hr 02/20/19 11:00 02/20/19 11:36 02/20/19 12:00 Pulse Rate 59 L 70 59 L Respiratory Rate 13 15 12 Blood Pressure Blood Pressure [Left Arm] 120/77 116/78 114/76 Pulse Oximetry 97 99 97 02/20/19 12:30 02/20/19 13:01 02/20/19 13:10 Pulse Rate 64 66 60 Respiratory Rate 14 17 20 Blood Pressure 116/63 Blood Pressure [Left Arm] 115/65 116/89 Pulse Oximetry 99 99 97 MDM - Chest Pain Lab Data Lab Results 02/20/19 Range/Units 11:38 Total Creatine Kinase 102 (30-135) U/L CK-MB (CK-2) 3.03 H (<2.37) ng/mL CK-MB (CK-2) Rel Index 3.0 (1.5-5.0) % Troponin I < 0.012 (0.01-0.034) ng/mL Discharge Plan Departure Patient Disposition: Home Clinical Impression: Nonspecific ST-T wave electrocardiographic changes Discharge Date/Time: 02/20/19 13:11 Interventions: ED Discharge Assessment Last Done: 02/20/19 13:10 Activity Restrictions/Additional Instructions: Follow up with Dr. Grijalva your drier operator head in the next 2-3 days for recheck. Call for an appointment. Dr. Grijalva would like to see you and get you set up for ECHO. Continue home medications as prescribed. Return to the ER for any new changes, passing out, lightheadedness, new chest pain, shortness of breath, persistent vomiting, sweatiness, abdominal pain, swelling in your extremities or other new or concerning symptoms. Prescriptions: No Action latanoprost [Xalatan] 0.005 % drops 1 drp OPHTH BEDTIME Qty: 0 RF: 0 multivitamin [Multiple Vitamins] 1 EACH tablet 1 tab PO DAILY Qty: 0 RF: 0 fluticasone propionate 50 mcg/actuation [place],Suspension 1 spray INTRANASAL BID RF: 0 cholecalciferol (vitamin D3) [Vitamin D3] 1,000 unit Capsule 1,000 unit PO DAILY RF: 0 polyethylene glycol 3350 [Miralax] 17 gram/dose Powder 17 g PO DAILY RF: 0 prednisone 20 mg tablet 20 mg PO DAILYX7 RF: 0 Astragalus 500 mg 500 mg PO BID RF: 0 turmeric root extract 500 mg Capsule 500 mg PO BID RF: 0 Quercetin 1 Gram 3 tab PO BID RF: 0 evening primrose oil 1,000 mcg 1 dose PO DAILY RF: 0 Referrals: Roxanne Grijalva MD [Physician] - Maury Arenas MD [Primary Care Provider] -
--- NOTE | 2019-02-20 12:51 | ED_ITS ---
HPI - Chest Pain General Chief Complaint: Chest Pain Stated Complaint: POSSIBLE STEMI Time Seen by Provider: 02/20/19 10:01 History of Present Illness HPI narrative: [address] [address] Emergency Report Patient: Darling Aguilar LMR#: [id number] : 1940Acct:[id number] Age/Sex: 79 / F Date of Service: 02/20/19 ER Physician: HPI - Chest Pain General Source: patient, family () and other (PACU nurse) Mode of arrival: other (gurney from OR) Limitations: no limitations History of Present Illness HPI narrative: This is a 79-year-old female comes to the emergency department for ST changes on her telemetry lead during a colonoscopy. Per PACU patient did not have any changes initially and when they rolled her on her side it appeared she had ST elevation on her telemetry lead and when they rolled her back over onto her back it resolved. They did once again and it showed up again and then resolved. Patient states that she has seen a janitor and cleaner about 3 years ago during a physical exam her EKG looked funny she was told to go to the janitor and cleaner who evaluated her and she states she was cleared. She takes medications for lock and seasonal allergies. 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 Today she was getting a screening colonoscopy that was after she had her 1st regular colonoscopy in 2013. She denies tobacco, 1-2 alcoholic drinks daily, no illicit. Patient denies any symptoms currently, she states she feels very rested and relaxed, she denies any headache, no chest pain, no chest pressure, no shortness of breath, no nausea or vomiting no other symptoms no other GI or urinary symptoms currently. Related Data Home Medications Medication Instructions Recorded Confirmed latanoprost [Xalatan] 1 drp OPHTH BEDTIME #0 12/20/11 02/20/19 multivitamin [Multiple Vitamins] 1 tab PO DAILY #0 07/29/16 02/20/19 Astragalus 500 mg PO BID 02/20/19 02/20/19 Quercetin 3 tab PO BID 02/20/19 02/20/19 cholecalciferol (vitamin D3) 1,000 unit PO DAILY 02/20/19 02/20/19 [Vitamin D3] evening primrose oil 1 dose PO DAILY 02/20/19 02/20/19 fluticasone propionate 1 spray INTRANASAL BID 02/20/19 02/20/19 polyethylene glycol 3350 [Miralax] 17 g PO DAILY 02/20/19 02/20/19 prednisone 20 mg PO DAILYX7 02/20/19 02/20/19 turmeric root extract 500 mg PO BID 02/20/19 02/20/19 Allergies Allergy/AdvReac Type Severity Reaction Status Date / Time levofloxacin [LEVOFLOXACIN] AdvReac Severe ACHILLES Verified 02/20/19 10:01 TENDONITIS ciprofloxacin [From Cipro] AdvReac Intermediate Achilles Verified 02/20/19 10:01 tendonitis doxycycline AdvReac Intermediate Verified 02/20/19 10:01 sulfadiazine [SULFADIAZINE] AdvReac Intermediate GI UPSET Verified 02/20/19 10:01 Review of Systems Review of Systems ROS Unobtainable: All systems reviewed & are unremarkable except as noted in HPI and below PFSH Medical History Arthritis (Acute) Constipation (Acute) Deaf (Acute) FH: total abdominal hysterectomy and bilateral salpingo-oophorectomy (Acute) Gastric reflux (Acute) Surgical History History of hip replacement History of lumpectomy Family History (Updated 03/01/17 @ 00:00 by Conversion Provider) Grandmother Heart disease Grandfather Breast cancer Grandmother Heart disease Sister Age: 74 Breast cancer Hypertension High cholesterol Social History household members: spouse Family History Grandmother Heart disease Grandfather Breast cancer Grandmother Heart disease Sister Age: 74 Breast cancer Hypertension High cholesterol Social History household members: spouse Smoking Status: Never smoker Exam Narrative Exam Narrative: GENERAL: Alert and oriented x three, patient does occasionally repeat the same information but otherwise is quite alert. She is in no acute distress HEENT: Head normocephalic, atraumatic, EOMI, pupils reactive, face symmetric, moist mucous membranes NECK: Supple, full range of motion CARDIOVASCULAR: Regular rate and rhythm without murmurs, rubs or gallops. RESPIRATORY: Breath sounds equal bilaterally, no wheezes rales or rhonchi. ABDOMEN: Soft, nontender. Nondistended. Normoactive bowel sounds all 4 quadrants. No guarding or rebound, rigidity, no mass : No CVA tenderness EXTREMITIES: Normal range of motion, no clubbing or edema. Neurovascularly intact NEUROLOGICAL: Cranial nerves II through XII grossly intact. Moving all extremities SKIN: Warm, dry, no petechiae, no rashes or lesions. Initial Vital Signs Initial Vital Signs: Vital Signs Temperature 97.3 F L 02/20/19 07:52 Pulse Rate 85 02/20/19 07:52 Respiratory Rate 15 02/20/19 07:52 Blood Pressure 133/90 02/20/19 07:52 Pulse Oximetry 96 02/20/19 07:52 Course Orders Ordered: ED Orders 02/20/19 08:55 EKG-12 Lead Stat 02/20/19 09:20 Comprehensive Metabolic Panel Stat Lipase Stat Trop I [Troponin I] Stat Troponin & CK Cardiac Panel Stat 02/20/19 09:45 XR chest 1V Stat 02/20/19 09:50 B Type Natriuretic Peptide Stat Complete Blood Count AUTO DIFF Stat Partial Thromboplastin Time Stat Prothrombin Time INR Stat Discontinued Medications Fentanyl (Sublimaze) 250 mcg IV NOW ONE Stop: 02/20/19 08:49 Last Admin: 02/20/19 08:48 Dose: 100 mcg Sodium Chloride (Normal Saline 0.9%) 1,000 mls @ 70 mls/hr IV CONT UMER Last Admin: 02/20/19 07:51 Dose: 70 mls/hr Sodium Chloride (Normal Saline 0.9%) 1,000 mls @ 150 mls/hr IV CONT UMER Midazolam HCl (Versed) 5 mg IV NOW ONE Stop: 02/20/19 08:49 Last Admin: 02/20/19 08:50 Dose: 5 mg Vital Signs - 8 hr 02/20/19 07:52 02/20/19 09:00 02/20/19 09:05 Temperature 97.3 F L 98.1 F Pulse Rate 85 69 65 Respiratory Rate 15 14 13 Blood Pressure 133/90 109/72 104/67 Pulse Oximetry 96 96 96 02/20/19 09:10 02/20/19 09:25 Temperature 97.2 F L Pulse Rate 73 70 Respiratory Rate 16 15 Blood Pressure 106/69 124/73 Pulse Oximetry 97 97 MDM - Chest Pain Lab Data Attestation: I reviewed the patient's lab results. Result diagrams: 02/20/19 09:50 document embedded image 02/20/19 09:20 document embedded image Lab Results 02/20/19 02/20/19 02/20/19 Range/Units 09:20 09:20 09:50 WBC 5.0 (4.5-11.0) X10^3/uL RBC 4.49 (4.0-5.2) X10^6/uL Hgb 13.7 (12.0-16.0) g/dL Hct 40.9 (36-46) % MCV 91.2 (80-100) fL MCH 30.5 (26-34) PG MCHC 33.5 (30-36) % RDW 14.0 (11.6-14.8) % Plt Count 259 (150-400) X10^3/uL Neut % (Auto) 47.7 L (50-75) % Lymph % (Auto) 39.3 (25-40) % Roane % (Auto) 8.9 (3-14) % Eos % (Auto) 2.9 (2-4) % Baso % (Auto) 1.2 (0-2) % Neut # (Auto) 2400 (4368-0956) /uL Lymph # (Auto) 1900 (7707-7146) /uL Roane # (Auto) 400 (0-900) /uL Eos # (Auto) 100 (0-450) /uL Baso # (Auto) 100 (0-100) /uL PT (10.1-12.7) SECONDS INR (0.9-1.3) APTT (26.4-36.2) SECONDS Sodium 140 (137-145) mmol/L Potassium 3.9 (3.4-5.1) mmol/L Chloride 108 H (98-107) mmol/L Carbon Dioxide 25 (22-32) mmol/L BUN 10 (7-17) mg/dL Creatinine 0.50 L (0.52-1.04) mg/dL Estimated GFR > 60.0 (>60) mL/min BUN/Creatinine Ratio 20.0 (6-22) Glucose 98 (80-110) mg/dL Calcium 8.8 (8.4-10.2) mg/dL Total Bilirubin 0.7 (0.2-1.3) mg/dL AST 32 (14-36) IU/L ALT 22 (9-52) IU/L Alkaline Phosphatase 38 (38-126) U/L Total Creatine Kinase 118 (30-135) U/L CK-MB (CK-2) 3.55 H (<2.37) ng/mL CK-MB (CK-2) Rel Index 3.0 (1.5-5.0) % Troponin I < 0.012 < 0.012 (0.01-0.034) ng/mL B-Natriuretic Peptide < 100 (<100) Total Protein 5.9 L (6.3-8.2) g/dL Albumin 3.7 (3.5-5.0) g/dL Globulin 2.2 (1.7-4.1) g/dL Albumin/Globulin Ratio 1.7 (1.0-2.8) Lipase 91 (23-300) U/L 02/20/19 Range/Units 09:50 WBC (4.5-11.0) X10^3/uL RBC (4.0-5.2) X10^6/uL Hgb (12.0-16.0) g/dL Hct (36-46) % MCV (80-100) fL MCH (26-34) PG MCHC (30-36) % RDW (11.6-14.8) % Plt Count (150-400) X10^3/uL Neut % (Auto) (50-75) % Lymph % (Auto) (25-40) % Roane % (Auto) (3-14) % Eos % (Auto) (2-4) % Baso % (Auto) (0-2) % Neut # (Auto) (2453-5813) /uL Lymph # (Auto) (8257-2505) /uL Roane # (Auto) (0-900) /uL Eos # (Auto) (0-450) /uL Baso # (Auto) (0-100) /uL PT 12.9 H (10.1-12.7) SECONDS INR 1.1 (0.9-1.3) APTT 28 (26.4-36.2) SECONDS Sodium (137-145) mmol/L Potassium (3.4-5.1) mmol/L Chloride (98-107) mmol/L Carbon Dioxide (22-32) mmol/L BUN (7-17) mg/dL Creatinine (0.52-1.04) mg/dL Estimated GFR (>60) mL/min BUN/Creatinine Ratio (6-22) Glucose (80-110) mg/dL Calcium (8.4-10.2) mg/dL Total Bilirubin (0.2-1.3) mg/dL AST (14-36) IU/L ALT (9-52) IU/L Alkaline Phosphatase (38-126) U/L Total Creatine Kinase (30-135) U/L CK-MB (CK-2) (<2.37) ng/mL CK-MB (CK-2) Rel Index (1.5-5.0) % Troponin I (0.01-0.034) ng/mL B-Natriuretic Peptide (<100) Total Protein (6.3-8.2) g/dL Albumin (3.5-5.0) g/dL Globulin (1.7-4.1) g/dL Albumin/Globulin Ratio (1.0-2.8) Lipase (23-300) U/L Imaging Data Chest x-ray: Radiologist's impression: Darling Aguilar 79 F 1940 [place] [address] XRay Report Signed Patient: Darling Aguilar LMR#: [id number] : 1940Acct:[id number] Age/Sex: 79 / FDate of Service: 02/20/19 Loc: ENDO Accession Number: [id number] Procedure: XR chest 1V Ordering Provider: Kae Tomas D.O. PROCEDURE: XR CHEST 1V INDICATIONS: st changes on tele during coloscopy TECHNIQUE: One view of the chest was acquired. COMPARISON: None. FINDINGS: Surgical changes and devices: None. Lungs and pleura: Lungs are clear. No pleural effusions or pneumothorax. Mediastinum: Mediastinal contours appear normal. Heart size is normal. Bones and chest wall: No suspicious bony lesions. Overlying soft tissues appear unremarkable. IMPRESSION: Normal for age, source of current possible coronary insufficiency symptoms is not seen. Dictated by: Wilian Malhotra M.D. on 02/20/2019 at 10:10 Approved by: Wilian Malhotra M.D. on 02/20/2019 at 10:11 ECG Data Prior ECG tracings: available for review (from earlier today) Interpretation: Patient has EKG from 0857 with a rate of 73 P are 152 QRS of 121 QTC of 462. Patient has right axis deviation, patient has Q-waves in V1 V2 with nonspecific changes. Patient does not have a prior for comparison. EKG 2. From 0940 in the emergency department shows sinus rhythm, rate of 65 P are 149 QRS of 123 QTC of 458. Nonspecific change patient continues to have Q- wave in V1 through V3. Patient did appear to possibly have some ST depression in the 0.5 mm range or inversion that does appear resolved on 2nd EKG. MDM Narrative Medical decision making narrative: Patient's labs show no changes in her CBC has a neutrophils are 47.7% which is slightly low, coags are normal, 108 creatinine is normal with normal electrolytes otherwise. CK-MB is 2.55, troponin is negative. BNP is 100. I spoke with Dr. Yoon who was performing the colonoscopy and sedation. He states that patient did have elevation on her telemetry strip. I states the procedure was about 10 or 15 minutes he states that it seem like she had the elevation throughout the procedure. He was unsure if it was possibly positional versus a cardiac event. Procedure was completed, patient was rolled back onto their back and at the end of the procedure had a normal tele strip. An in the PACU EKG after the procedure did not show obvious changes. Patient had EKG that we did obtain from her janitor and cleaner's office in comparison to today's 2nd EKG does appear similar. Spoke with patient's janitor and cleaner, Dr. Grijalva. She evaluated their office about 5 years ago. He has not seen her since. We discussed patient's findings we discussed that it is unclear if this could be artifact from a leads versus potentially a cardiac event although STEMI is less likely as patient is asymptomatic after. He did recommend follow up outpatient, echo. We discussed the patient should be observed. He felt that it was not significant if repeat troponin was negative. Discussed with patient and her family she continues to be totally asymptomatic. She feels comfortable returning home and would like follow up outpatient. Related Data Home Medications Medication Instructions Recorded Confirmed latanoprost [Xalatan] 1 drp OPHTH BEDTIME #0 12/20/11 02/20/19 multivitamin [Multiple Vitamins] 1 tab PO DAILY #0 07/29/16 02/20/19 Astragalus 500 mg PO BID 02/20/19 02/20/19 Quercetin 3 tab PO BID 02/20/19 02/20/19 cholecalciferol (vitamin D3) 1,000 unit PO DAILY 02/20/19 02/20/19 [Vitamin D3] evening primrose oil 1 dose PO DAILY 02/20/19 02/20/19 fluticasone propionate 1 spray INTRANASAL BID 02/20/19 02/20/19 polyethylene glycol 3350 [Miralax] 17 g PO DAILY 02/20/19 02/20/19 prednisone 20 mg PO DAILYX7 02/20/19 02/20/19 turmeric root extract 500 mg PO BID 02/20/19 02/20/19 Allergies Allergy/AdvReac Type Severity Reaction Status Date / Time levofloxacin [LEVOFLOXACIN] AdvReac Severe ACHILLES Verified 02/20/19 10:01 TENDONITIS ciprofloxacin [From Cipro] AdvReac Intermediate Achilles Verified 02/20/19 10:01 tendonitis doxycycline AdvReac Intermediate Verified 02/20/19 10:01 sulfadiazine [SULFADIAZINE] AdvReac Intermediate GI UPSET Verified 02/20/19 10:01 PFSH Social History household members: spouse Smoking Status: Never smoker Exam Initial Vital Signs Initial Vital Signs: Vital Signs Temperature 97.8 F 02/20/19 09:50 Pulse Rate 69 02/20/19 09:50 Respiratory Rate 14 02/20/19 09:50 Blood Pressure 126/81 02/20/19 09:50 Pulse Oximetry 100 02/20/19 09:50 Course Orders Ordered: ED Orders 02/20/19 11:38 Troponin & CK Cardiac Panel Stat Discontinued Medications Aspirin (Aspirin Chew) 324 mg PO NOW ONE Stop: 02/20/19 10:02 Last Admin: 02/20/19 10:34 Dose: 324 mg Sodium Chloride (Normal Saline 0.9%) 1,000 mls @ 150 mls/hr IV CONT UMER Last Infusion: 02/20/19 12:57 Dose: 0 mls/hr Admin: 02/20/19 10:15 Dose: 150 mls/hr Vital Signs - 8 hr 02/20/19 11:00 02/20/19 11:36 02/20/19 12:00 Pulse Rate 59 L 70 59 L Respiratory Rate 13 15 12 Blood Pressure Blood Pressure [Left Arm] 120/77 116/78 114/76 Pulse Oximetry 97 99 97 02/20/19 12:30 02/20/19 13:01 02/20/19 13:10 Pulse Rate 64 66 60 Respiratory Rate 14 17 20 Blood Pressure 116/63 Blood Pressure [Left Arm] 115/65 116/89 Pulse Oximetry 99 99 97 MDM - Chest Pain Lab Data Lab Results 02/20/19 Range/Units 11:38 Total Creatine Kinase 102 (30-135) U/L CK-MB (CK-2) 3.03 H (<2.37) ng/mL CK-MB (CK-2) Rel Index 3.0 (1.5-5.0) % Troponin I < 0.012 (0.01-0.034) ng/mL Discharge Plan Departure Patient Disposition: Home Clinical Impression: Nonspecific ST-T wave electrocardiographic changes Discharge Date/Time: 02/20/19 13:11 Interventions: ED Discharge Assessment Last Done: 02/20/19 13:10 Activity Restrictions/Additional Instructions: Follow up with Dr. Grijalva your janitor and cleaner in the next 2-3 days for recheck. Call for an appointment. Dr. Grijalva would like to see you and get you set up for ECHO. Continue home medications as prescribed. Return to the ER for any new changes, passing out, lightheadedness, new chest pain, shortness of breath, persistent vomiting, sweatiness, abdominal pain, swelling in your extremities or other new or concerning symptoms. Prescriptions: No Action latanoprost [Xalatan] 0.005 % drops 1 drp OPHTH BEDTIME Qty: 0 RF: 0 multivitamin [Multiple Vitamins] 1 EACH tablet 1 tab PO DAILY Qty: 0 RF: 0 fluticasone propionate 50 mcg/actuation [place],Suspension 1 spray INTRANASAL BID RF: 0 cholecalciferol (vitamin D3) [Vitamin D3] 1,000 unit Capsule 1,000 unit PO DAILY RF: 0 polyethylene glycol 3350 [Miralax] 17 gram/dose Powder 17 g PO DAILY RF: 0 prednisone 20 mg tablet 20 mg PO DAILYX7 RF: 0 Astragalus 500 mg 500 mg PO BID RF: 0 turmeric root extract 500 mg Capsule 500 mg PO BID RF: 0 Quercetin 1 Gram 3 tab PO BID RF: 0 evening primrose oil 1,000 mcg 1 dose PO DAILY RF: 0 Referrals: Roxanne Grijalva MD [Physician] - Maury Arenas MD [Primary Care Provider] -
== END 2019-02-20 13:11 | disposition home or self-care (01) ==
PROVIDERS: Emergency Provider Emergency Medicine; PCP Family Medicine
DX: R94.31 Abnormal electrocardiogram [ECG] [EKG] (principal)
CPT/HCPCS: 36415; 36591; 82550; 82553; 84484; 93005

== ENCOUNTER → 2019-04-19 15:04 | Outpatient (CLI) | payer MEDICARE, OTHER, SELFPAY ==
--- NOTE | 2019-04-19 | DI.ECHO.S_ITS ---
[facility]---------+ [facility] +---------+ : : [address] : : : : [address] : : : : Phone: [phone]+ Echocardiogram Report + + :Name: ALIS BULL Study Date: 04/19/2019 Height: 65 in : :[facility] Exam Location: IS Weight: 132 lb : : Gender: Female BSA: 1.7 m2 : :: 1940 Age: 79 yrs BP: 142/90 mmHg: :Reason For Study: LBBB : :Ordering Physician: Roxanne Lopez : :Valentine Performed By: Leila Page : + + Interpretation Summary 1) Normal left ventricular thickness, size, wall motion, and systolic function (EF 55-60%). 2) Normal right ventricular size and function. 3) There is mild to moderate aortic regurgitation. 4) Incidental finding of multiple cyst's one is very large measuring 8.0 cm x 8.1 cm. These were also noted on CT scan chest/abdomen done at [facility] 08/08/2017. 5) No prior Echo available for comparison. Procedure: A two-dimensional transthoracic echocardiogram with color flow and Doppler was performed. The study quality was technically adequate. There is no prior echocardiogram noted for this patient. The patient was in normal sinus rhythm during the exam. The patient had occasional PVCs during the exam. Left Ventricle: The left ventricle is normal in size, wall thickness, and systolic function without any focal wall motion abnormalities. The ejection fraction is estimated to be 55-60%. Right Ventricle: The right ventricle is normal in size and function. Atria: The left atrial size is normal. The right atrium is moderately dilated. There is no Doppler evidence for an interatrial shunt. Mitral Valve: The mitral valve leaflets appear mildly thickened, but open well. There is trace mitral regurgitation. Aortic Valve: The aortic valve is trileaflet. The aortic valve opens well. There is no aortic valve stenosis. There is mild to moderate aortic regurgitation. Tricuspid Valve: The tricuspid valve is normal in structure and function. There is mild tricuspid regurgitation. The right ventricular systolic pressure is estimated to be at least 33 mmHg based on an estimated right atrial pressure of 3 mm Hg. Pulmonic Valve: The pulmonic valve is not well visualized. There is trace pulmonic regurgitation. Great Vessels: The aortic root is borderline dilated. The ascending aorta is normal in size. The pulmonary artery is not well visualized, but is probably normal size. The IVC is of normal diameter and collapses greater than 50% with a sniff. This suggests a low right atrial pressure of 3 mm Hg. Pericardium/ Pleura There is no pericardial effusion. There is no pleural effusion. MMode/2D Measurements & Calculations LVIDd: 4.6 cm LVOT diam: 2.1 cm LVIDs: 3.2 cm Ao root diam: 4.0 cm FS: 30.2 % asc Aorta Diam: 3.3 cm EPSS: 0.41 cm IVSd: 0.61 cm LVPWd: 0.56 cm LV dia. diameter/BSA (cm/m^2): 2.8 LV sys. diameter/BSA (cm/m^2): 1.9 LA A2 area: 15.0 cm2 RA long axis: 5.1 cm LA A4 area: 18.5 cm2 RA area: 19.5 cm2 LA length (vol): 4.8 cm RA vol: 63.3 ml LA vol: 49.1 ml RA : 38.2 ml/m2 LA vol index: 29.6 ml/m2 RVD1 (basal): 3.8 cm RVD2 (mid): 3.2 cm TAPSE: 2.1 cm Doppler Measurements & Calculations Ao V2 max: 122.8 cm/sec LVOT Max Lamont: 77.1 cm/sec Ao V2 mean: 91.8 cm/sec LV V1 max P.4 mmHg Ao max P.0 mmHg LV V1 VTI: 16.5 cm Ao mean P.6 mmHg JAZMIN(I,D): 2.2 cm2 Ao V2 VTI: 25.4 cm JAZMIN(V,D): 2.1 cm2 sev ratio: 0.65 JAZMIN indexed to BSA (cm^2/m^2): 1.3 AI P1/2t: 562.0 msec AI dec slope: 239.3 cm/sec2 MV E max lamont: 42.0 cm/sec TR max lamont: 275.7 cm/sec MV A max lamont: 65.2 cm/sec TR max P.4 mmHg MV E/A: 0.64 PA V2 max: 70.5 cm/sec Med Peak E' Lamont: 2.7 cm/sec PA V2 mean: 46.4 cm/sec E/E' med: 15.7 PA mean P.98 mmHg Lat Peak E' Lamont: 4.9 cm/sec PA Accel Time: 0.05 sec E/E' lat: 8.6 E/e' average: 12.1 MV dec time: 0.32 sec MV P1/2t: 91.3 msec MV P1/2t max lamont: 42.4 cm/sec SV(LVOT): 56.0 ml MVA(2t): 2.4 cm2 Reading Physician:03:05 PM
== END ==
PROVIDERS: PCP Family Medicine; Visit Provider Internal Medicine Cardiovascular Disease
DX: I08.2 Rheumatic disorders of both aortic and tricuspid valves (principal); I44.7 Left bundle-branch block, unspecified
CPT/HCPCS: 93306

== ENCOUNTER → 2021-03-30 13:31 | Outpatient (CLI) | payer MEDICARE, OTHER, SELFPAY ==
--- NOTE | 2021-03-30 | DI.ECHO.S_ITS ---
[facility] +---------+ [facility] +---------+ : : [address] : : : : [id number] : : : : Phone: [phone]+ Echocardiogram Report + + :Name: ALIS BULL Study Date: 03/30/2021 Height: 65 in : :[facility] ReadingLocation: Weight: 127 lb : : Gender: Female BSA: 1.6 m2 : :: 1940 Age: 81 yrs BP: 153/88 mmHg: :Reason For Study: AORTIC INSUFFICIENCY : :Ordering Physician: ADENIKE, : :GARY Performed By: Bridget Mcnally : :Referring: GARY GRIJALVA : + + Interpretation Summary 1) Normal left ventricular thickness, size, wall motion, and systolic function (EF 55-60%). 2) Normal right ventricular size and function. 3) There is mild to moderate aortic regurgitation. 4) There is mild-moderate tricuspid regurgitation. 5) Incidental finding of multiple cyst's one is very large measuring over 8.0 cm in the greatest dimension. These were also noted on CT scan chest/abdomen done at [facility] 08/08/2017. 6) Compared to the Echo done 04/19/2019, no significant change. Procedure: A two-dimensional transthoracic echocardiogram with color flow and Doppler was performed. The study quality was technically adequate. Comparison is made with the echocardiogram of 04/19/2019. The patient had occasional PVCs during the exam. The patient was in sinus rhythm with heart rates between 64-81 bpm during the exam. Left Ventricle: The left ventricle is normal in size and wall thickness. The ejection fraction is estimated to be 55-60%. Left ventricular systolic function appears normal without focal wall motion abnormalities. Right Ventricle: The right ventricle is normal in size and function. Atria: The left atrium is mildly dilated. Right atrial size is normal. There is no Doppler evidence for an interatrial shunt. Mitral Valve: The mitral valve is normal in structure and function. There is trace mitral regurgitation. Aortic Valve: The aortic valve is trileaflet. The aortic valve opens well. There is no aortic valve stenosis. There is mild to moderate aortic regurgitation. Tricuspid Valve: The tricuspid valve leaflets are thin and pliable. There is mild to moderate tricuspid regurgitation. The right ventricular systolic pressure is estimated to be at least 27 mmHg based on an estimated right atrial pressure of 3 mm Hg. Pulmonic Valve: The pulmonic valve leaflets are thin and pliable; valve motion is normal. There is mild pulmonic regurgitation. Great Vessels: The aortic root is borderline dilated. The dimensions of the ascending aorta are normal. The IVC is of normal diameter and collapses greater than 50% with a sniff. This suggests a low right atrial pressure of 3 mm Hg. Pericardium/ Pleura There is no pericardial effusion. There is no pleural effusion. MMode/2D Measurements & Calculations LVIDd: 4.4 cm LVOT diam: 2.0 cm LVIDs: 2.9 cm Ao root diam: 3.7 cm FS: 33.3 % asc Aorta Diam: 3.4 cm IVSd: 0.66 cm Ao Arch Diam (Prox Trans): 2.9 cm LVPWd: 0.78 cm LV dia. diameter/BSA (cm/m^2): 2.7 LV sys. diameter/BSA (cm/m^2): 1.8 LA A2 area: 17.5 cm2 RA long axis: 4.7 cm LA A4 area: 17.4 cm2 RA area: 15.9 cm2 LA length (vol): 4.7 cm RA vol: 45.9 ml LA vol: 55.0 ml RA : 28.1 ml/m2 LA vol index: 33.7 ml/m2 IVC diam: 0.79 cm RVD1 (basal): 3.0 cm TAPSE: 2.0 cm Doppler Measurements & Calculations Ao V2 max: 134.0 cm/sec LVOT Max Lamont: 72.2 cm/sec Ao V2 mean: 89.2 cm/sec LV V1 max P.1 mmHg Ao max P.2 mmHg LV V1 VTI: 14.3 cm Ao mean P.7 mmHg JAZMIN(I,D): 1.8 cm2 Ao V2 VTI: 24.8 cm JAZMIN(V,D): 1.7 cm2 sev ratio: 0.58 JAZMIN indexed to BSA (cm^2/m^2): 1.1 AI P1/2t: 917.5 msec AI dec slope: 122.3 cm/sec2 MV E max lamont: 60.3 cm/sec TR max lamont: 244.3 cm/sec MV A max lamont: 70.2 cm/sec TR max P.9 mmHg MV E/A: 0.86 PA V2 max: 91.4 cm/sec Med Peak E' Lamont: 4.4 cm/sec PA V2 mean: 67.5 cm/sec E/E' med: 13.7 PA mean P.0 mmHg Lat Peak E' Lamont: 5.9 cm/sec PA pr(Accel): 46.5 mmHg E/E' lat: 10.2 E/e' average: 12.0 MV dec time: 0.20 sec SV(LVOT): 45.2 ml Reading Physician:08:54 PM
== END ==
PROVIDERS: PCP Family Medicine; Referring Provider Internal Medicine Cardiovascular Disease; Visit Provider Internal Medicine Cardiovascular Disease
DX: I35.1 Nonrheumatic aortic (valve) insufficiency (principal); I07.1 Rheumatic tricuspid insufficiency
CPT/HCPCS: 93306

== ENCOUNTER → 2023-02-08 11:29 | Outpatient (CLI) | payer MEDICARE, OTHER, SELFPAY ==
--- NOTE | 2023-02-17 15:14 | PM.PFT.1 ---
Pulmonary Function Test Referral & Results Date Patient Seen: 02/08/23 Results: No hemoglobin value was provided, so no correction for potential anemia could be made, if appropriate. The spirometry demonstrates an FVC of 2.40 L which is 92% of predicted. The FEV1 was measured at 1.92 L which is 99% of predicted. The FEV1/FVC ratio was 80 which is 109% of predicted. Following the administration of bronchodilator there was no notable change to above normal numbers. Lung volumes show an SVC of 2.52 L which is 93% of predicted. The diffusing capacity was measured at 17.68 which is 69% of predicted. The maximum voluntary ventilation was minimally reduced Interpretation: This study demonstrates normal spirometry There is a minimal/mild reduction in diffusing capacity suggesting presence of disease at the capillary alveolar level There is also a very mild reduction in maximum voluntary ventilation which in the absence of any abnormalities of spirometry may suggest the presence of neuromuscular disease Clinical correlation suggested
== END ==
PROVIDERS: PCP Family Medicine; Referring Provider Physician Assistant; Visit Provider Physician Assistant
DX: Z01.818 Encounter for other preprocedural examination (principal); C44.90 Unspecified malignant neoplasm of skin, unspecified; R91.1 Solitary pulmonary nodule; Z87.891 Personal history of nicotine dependence; J98.8 Other specified respiratory disorders
CPT/HCPCS: 94060; 94726; 94729

== ENCOUNTER → 2023-02-24 10:29 | Outpatient (CLI) | payer MEDICARE, OTHER, SELFPAY | PROVIDERS: PCP Family Medicine; Visit Provider Nurse Practitioner Family | DX: R30.0 Dysuria (principal) | CPT/HCPCS: 87077; 87086; 87186 ==

== ENCOUNTER 2023-02-27 06:06 | Emergency (ER) | payer MEDICARE, OTHER, SELFPAY ==
[2023-02-27 06:15] VITALS: BP 133/84; PULSE 91; RESP 16; TEMP 36.6; O2SAT 98; BMI 20.6
--- NOTE | 2023-02-27 06:21 | ED_ITS ---
HPI - Recheck/Abnormal Lab/Rx <Ben Hawthornechina DO - Last Filed: 02/28/23 04:28> General Chief Complaint: Recheck/Abnormal Lab/Rx Stated Complaint: was told to come here for an infusion from walkin Time Seen by Provider: 02/27/23 06:21 Source: patient Mode of arrival: Ambulatory History of Present Illness HPI narrative: 83-year-old female with history of recurrent lung cancer and recent right lower lobe lobectomy presents with a chief complaint of urinary symptoms. She had presented to the walk-in clinic a few days ago with dysuria, frequency and urgency, she had urine obtained which showed signs of infection and started on nitrofurantoin. When the culture came back it was found to have Pseudomonas, with typical susceptibilities. The patient was contacted and when she relayed her prior tendon problems with quinolone she was referred to the emergency department for IV antibiotics. She denies fever or chills. She denies any nausea, vomiting or back pain. Related Data Home Medications Medication Instructions Recorded Confirmed latanoprost 0.005 % eye drops 1 drp OPHTH BEDTIME ##0 12/19/02/24/23 (Xalatan) multivitamin (Multiple Vitamins 1 tab PO DAILY ##0 07/29/16 02/24/23 tablet) Astragalus 500 mg PO BID 02/20/19 02/24/23 Quercetin 3 tab PO BID 02/20/19 02/24/23 cholecalciferol (vitamin D3) 25 1,000 unit PO DAILY 02/20/19 02/24/23 mcg (1,000 unit) capsule (Vitamin D3) evening primrose oil 1 dose PO DAILY 02/20/19 02/24/23 fluticasone propionate 50 1 spray intranasal BID 02/20/19 02/24/23 mcg/actuation nasal spray,suspension polyethylene glycol 3350 17 17 g PO DAILY 02/20/19 02/24/23 gram/dose oral powder (Miralax) prednisone 20 mg tablet 20 mg PO DAILYX7 02/20/19 02/24/23 turmeric root extract 500 mg 500 mg PO BID 02/20/19 02/24/23 capsule Previous Rx's Medication Instructions Recorded nitrofurantoin 100 mg PO Q12H 5 days #10 caps 02/24/23 monohydrate/macrocrystals 100 mg capsule (Macrobid) phenazopyridine 200 mg tablet 200 mg PO TID 6 doses #6 tabs 02/24/23 (Pyridium) Allergies Allergy/AdvReac Type Severity Reaction Status Date / Time levofloxacin [LEVOFLOXACIN] AdvReac Severe ACHILLES Verified 02/27/23 06:25 TENDONITIS ciprofloxacin [From Cipro] AdvReac Intermediate Achilles Verified 02/27/23 06:25 tendonitis doxycycline AdvReac Intermediate Verified 02/27/23 06:25 sulfadiazine [SULFADIAZINE] AdvReac Intermediate GI UPSET Verified 02/27/23 06:25 Review of Systems <Ben Foster DO - Last Filed: 02/28/23 04:28> Review of Systems Narrative: GENERAL: Denies chills, fatigue, malaise, fever, sweats. HEENT: Denies sinus pain, ear pain, sore throat, difficulty swallowing, dizziness. RESPIRATORY: Denies dyspnea, cough, wheezing, hemoptysis, sputum. CARDIOVASCULAR: Denies chest pain, palpitations, orthopnea, edema, GASTROINTESTINAL: Denies nausea, vomiting, abdominal pain, diarrhea, constipation, melena. : See HPI MUSCULOSKELETAL: denies weakness, joint pain, or bony pain SKIN: Denies rash, skin lesions, or other NEUROLOGIC: Denies weakness, headache, numbness, change in speech, confusion, seizures, incoordination. PSYCHIATRIC: No concerning psychosocial issues. 12 point review of systems is negative except for those stated above Patient History <Ben Foster DO - Last Filed: 02/28/23 04:28> Medical History (Updated 02/27/23 @ 08:12 by Deborah Chakraborty DO) Arthritis Constipation Deaf FH: total abdominal hysterectomy and bilateral salpingo-oophorectomy Gastric reflux Surgical History History of hip replacement History of lumpectomy Family History Grandmother Heart disease Grandfather Breast cancer Grandmother Heart disease Sister Age: 78 Breast cancer Hypertension High cholesterol Social History household members: spouse Smoking Status: Never smoker Smoking Status: Never smoker alcohol intake frequency: 0-2 drinks per day Substance Use Type: does not use Exam <DO Anselmo Ramirez Last Filed: 02/28/23 04:28> Narrative Exam Narrative: GEN: AOx3 and in mild distress EYES: Pupils are equal, round, and reactive to light and accommodation. Extraoccular muscles are intact bilaterally. There is no subconjunctival hemorrhage or exudate. CHEST: Lungs are clear to auscultation bilaterally and free of wheezes, rales, or rhonchi. Heart rate is regular rhythm, there are no murmurs, clicks, rubs, or gallops. There is no chest wall tenderness. Appropriately healing scar right posterior flank is clean, dry and intact ABD: Abdomen is soft and nontender. There is no guarding or rebound. Bowel sounds are normal in all 4 quadrants. There is no mass or organomegaly. EXT: Full painless ROM of all extremities with no loss of sensation or strength. SKIN: Warm, pink, and dry. No erythema or rash Initial Vital Signs Initial Vital Signs: Vital Signs Temperature 97.8 F 02/27/23 06:15 Pulse Rate 91 H 02/27/23 06:15 Respiratory Rate 16 02/27/23 06:15 Blood Pressure 133/84 02/27/23 06:15 Pulse Oximetry 98 02/27/23 06:15 Oxygen Delivery Method Room Air 02/27/23 06:15 <Deborah Chakraborty DO - Last Filed: 02/27/23 09:27> Initial Vital Signs Initial Vital Signs: Vital Signs Temperature 97.8 F 02/27/23 06:15 Pulse Rate 91 H 02/27/23 06:15 Respiratory Rate 16 02/27/23 06:15 Blood Pressure 133/84 02/27/23 06:15 Pulse Oximetry 98 02/27/23 06:15 Oxygen Delivery Method Room Air 02/27/23 06:15 Course <DO Anselmo Ramirez Last Filed: 02/28/23 04:28> Orders Ordered: Discontinued Medications Fosfomycin Tromethamine (Fosfomycin 3 Gm Packet) 3 gm PO NOW ONE Stop: 02/27/23 08:04 Last Admin: 02/27/23 08:12 Dose: 3 gm Documented By: SWAPNA Cefepime HCl 2 gm/ Sodium (Chloride) 100 mls @ 200 mls/hr IV NOW ONE Stop: 02/27/23 06:35 Last Infusion: 02/27/23 07:23 Dose: 0 mls/hr Documented By: Admin: 02/27/23 06:46 Dose: 200 mls/hr Documented By: [facility] Vital Signs Vital signs: Vital Signs - 8 hr 02/27/23 06:15 02/27/23 08:17 Temperature 97.8 F 98 F Pulse Rate 91 H 85 Respiratory Rate 16 16 Blood Pressure 133/84 128/65 Pulse Oximetry 98 98 Oxygen Delivery Method Room Air Room Air <Deborah Chakraborty DO - Last Filed: 02/27/23 09:27> Orders Ordered: Discontinued Medications Fosfomycin Tromethamine (Fosfomycin 3 Gm Packet) 3 gm PO NOW ONE Stop: 02/27/23 08:04 Last Admin: 02/27/23 08:12 Dose: 3 gm Documented By: SWAPNA Cefepime HCl 2 gm/ Sodium (Chloride) 100 mls @ 200 mls/hr IV NOW ONE Stop: 02/27/23 06:35 Last Infusion: 02/27/23 07:23 Dose: 0 mls/hr Documented By: Admin: 02/27/23 06:46 Dose: 200 mls/hr Documented By: HEIKE Vital Signs Vital signs: Vital Signs - 8 hr 02/27/23 06:15 02/27/23 08:17 Temperature 97.8 F 98 F Pulse Rate 91 H 85 Respiratory Rate 16 16 Blood Pressure 133/84 128/65 Pulse Oximetry 98 98 Oxygen Delivery Method Room Air Room Air MDM - Recheck/Abnormal Lab/Rx <Ben Foster DO - Last Filed: 02/28/23 04:28> Lab Data 02/27/23 06:51 02/27/23 06:51 Labs: Lab Results 02/27/23 02/27/23 Range/Units 06:51 06:51 WBC 9.9 (4.5-11.0) X10^3/uL RBC 4.49 (4.0-5.2) X10^6/uL Hgb 13.8 (12.0-16.0) g/dL Hct 40.8 (36-46) % MCV 90.9 (80-100) fL MCH 30.7 (26-34) PG MCHC 33.8 (30-36) % RDW 14.1 (11.6-14.8) % Plt Count 367 (150-400) X10^3/uL Neut % (Auto) 55.4 (50-75) % Lymph % (Auto) 26.8 (25-40) % [place] % (Auto) 9.4 (3-14) % Eos % (Auto) 7.5 H (2-4) % Baso % (Auto) 0.9 (0-2) % Neut # (Auto) 5500 (2130-4372) /uL Lymph # (Auto) 2700 (6763-8448) /uL [place] # (Auto) 900 (0-900) /uL Eos # (Auto) 700 H (0-450) /uL Baso # (Auto) 100 (0-100) /uL Sodium 136 L (137-145) mmol/L Potassium 4.4 (3.4-5.1) mmol/L Chloride 103 (98-107) mmol/L Carbon Dioxide 25 (22-32) mmol/L BUN 16 (7-17) mg/dL Creatinine 0.59 (0.52-1.04) mg/dL Estimated GFR > 60 (>60) mL/min BUN/Creatinine Ratio 27.1 H (6-22) Glucose 113 H (80-110) mg/dL Calcium 9.5 (8.4-10.2) mg/dL <Deborah Chakraborty, DO - Last Filed: 02/27/23 09:27> Lab Data Labs: Lab Results 02/27/23 02/27/23 Range/Units 06:51 06:51 WBC 9.9 (4.5-11.0) X10^3/uL RBC 4.49 (4.0-5.2) X10^6/uL Hgb 13.8 (12.0-16.0) g/dL Hct 40.8 (36-46) % MCV 90.9 (80-100) fL MCH 30.7 (26-34) PG MCHC 33.8 (30-36) % RDW 14.1 (11.6-14.8) % Plt Count 367 (150-400) X10^3/uL Neut % (Auto) 55.4 (50-75) % Lymph % (Auto) 26.8 (25-40) % [place] % (Auto) 9.4 (3-14) % Eos % (Auto) 7.5 H (2-4) % Baso % (Auto) 0.9 (0-2) % Neut # (Auto) 5500 (7016-5077) /uL Lymph # (Auto) 2700 (7015-1791) /uL [place] # (Auto) 900 (0-900) /uL Eos # (Auto) 700 H (0-450) /uL Baso # (Auto) 100 (0-100) /uL Sodium 136 L (137-145) mmol/L Potassium 4.4 (3.4-5.1) mmol/L Chloride 103 (98-107) mmol/L Carbon Dioxide 25 (22-32) mmol/L BUN 16 (7-17) mg/dL Creatinine 0.59 (0.52-1.04) mg/dL Estimated GFR > 60 (>60) mL/min BUN/Creatinine Ratio 27.1 H (6-22) Glucose 113 H (80-110) mg/dL Calcium 9.5 (8.4-10.2) mg/dL MDM Narrative Medical decision making narrative: Dr. Chakraborty-patient signed out to me by Dr. Foster patient is found to have a Pseudomonas UTI. It is sensitive to fluoroquinolones however patient reports that she had severe tendinopathy after fluoroquinolones requiring extensive physical therapy she refuses to take them again. She is ordered a dose of Fortaz. She is no evidence of sepsis no leukocytosis she is afebrile vitals are stable. Dr. Russo hospitalist consulted recommends 1 dose of fosphenytoin 3 g p.o. should cover Pseudomonas. She should have a repeat UA checked as an outpatient. I called and spoke to the clinic front desk receptionist lady told her that she needs a urinalysis this week. She will put her in the pool and send a message to the provider. Discharge Plan Departure Patient Disposition: Home Clinical Impression: Acute UTI Instructions: DI for Urinary Tract Infection (UTI) Activity Restrictions/Additional Instructions: *You have been diagnosed with UTI *What to do: At this time please have a repeat urinalysis this week either with primary or walk-in clinic *Continue to take medications as directed *Follow up with your primary care provider in 2-3 days or call [phone] *Return to ER if you should have increasing back pain nausea vomiting fever confusion or any new, worsening or concerning symptoms Prescriptions: No Action nitrofurantoin monohyd/m-cryst [Macrobid] 100 mg capsule 100 mg PO Q12H 5 Days Qty: 10 0RF Rx Instructions: must administer with a meal/food phenazopyridine [Pyridium] 200 mg tablet 200 mg PO TID 0 Days Qty: 6 0RF latanoprost [Xalatan] 0.005 % drops 1 drp OPHTH BEDTIME Qty: 0 multivitamin [Multiple Vitamins] 1 EACH tablet 1 tab PO DAILY Qty: 0 fluticasone propionate 50 mcg/actuation [place],Suspension 1 spray INTRANASAL BID cholecalciferol (vitamin D3) [Vitamin D3] 1,000 unit Capsule 1,000 unit PO DAILY polyethylene glycol 3350 [Miralax] 17 gram/dose Powder 17 g PO DAILY Patient Comments: not on med list provided 02/20/19 prednisone 20 mg tablet 20 mg PO DAILYX7 Patient Comments: TK 1 T PO QD WF FOR 7 DAYS Rx Instructions: filled 02/13 Astragalus 500 mg 500 mg PO BID turmeric root extract 500 mg Capsule 500 mg PO BID Quercetin 1 Gram 3 tab PO BID evening primrose oil 1,000 mcg 1 dose PO DAILY Referrals: Jerri Olmstead MD [Primary Care Provider] - Stand Alone Forms: Patient Portal/API
[2023-02-27] MEDS: CEFEPIME 2 GM in SODIUM CHLORIDE 0.9% 100 ML IV (06:46)
[2023-02-27 07:07] LABS: Add Manual Diff / Slide Review NO; Basophils Absolute Auto 100 /uL (0-100); Basophils Percent Auto 0.9 % (0-2); Eosinophils Absolute Auto 700 /uL (0-450); Eosinophils Percent Auto 7.5 % (2-4); Hematocrit 40.8 % (36-46); Hemoglobin 13.8 g/dL (12.0-16.0); Lymphocytes Absolute Auto 2700 /uL (1100-4500); Lymphocytes Percent Auto 26.8 % (25-40); Mean Corpuscular HGB Conc 33.8 % (30-36); Mean Corpuscular Hemoglobin 30.7 PG (26-34); Mean Corpuscular Volume 90.9 fL (80-100); Monocytes Absolute Auto 900 /uL (0-900); Monocytes Percent Auto 9.4 % (3-14); Neutrophils Absolute Auto 5500 /uL (1500-7000); Neutrophils Percent Auto 55.4 % (50-75); Platelet Count 367 X10^3/uL (150-400); Red Blood Cell Count 4.49 X10^6/uL (4.0-5.2); Red Cell Distribution Width 14.1 % (11.6-14.8); White Blood Cell Count 9.9 X10^3/uL (4.5-11.0)
[2023-02-27 07:12] LABS: BUN Creatinine Ratio 27.1 (6-22); Blood Urea Nitrogen 16 mg/dL (7-17); Calcium 9.5 mg/dL (8.4-10.2); Carbon Dioxide 25 mmol/L (22-32); Chloride 103 mmol/L (98-107); Estimated Glomerular Filt Rate > 60 mL/min (>60); Glucose 113 mg/dL (80-110); HEMOLYSIS < 15 (0-50); Potassium 4.4 mmol/L (3.4-5.1); Sodium 136 mmol/L (137-145)
--- NOTE | 2023-02-27 08:01 | PC.NURSE ---
0745: Pt pending admission by Dr Chakraborty for pseudomonas UTI. Pt voiced concern that she does not want to be admitted for 3 days. Lives on [address] and would be admitted for abx infusion. Advised that the abx she would be receiving would be Q8 or Q12 hours which is why she would be admitted rather than continuing to come back for infusions. Call placed to [employer] regarding trying to find patient resources for outpatient infusion while she is on [address]. [id number]: Dr Chakraborty spoke to Dr Russo, inpatient hospitalist who advised pt can receive PO Fosfomycin and be discharged and follow up with her PCP for a repeat UA at the end of the week.
[2023-02-27] MEDS: FOSFOMYCIN 3 GM PACKET PO (08:12)
[2023-02-27 08:17] VITALS: BP 128/65; PULSE 85; RESP 16; TEMP 36.6; O2SAT 98
--- NOTE | 2023-03-15 17:53 | PC.NURSE ---
ED record faxed to [facility] ED for continuity of care.
== END 2023-02-27 08:18 | disposition home or self-care (01) ==
PROVIDERS: Emergency Medicine; Emergency Provider Emergency Medicine; PCP Family Medicine
DX: N39.0 Urinary tract infection, site not specified (principal)
CPT/HCPCS: 36415; 80048; 85025; 96365; 99284; J0692